=== PATIENT | female | born 1975 | race Caucasian/White ===

== ENCOUNTER 2018-02-21 23:49 | Emergency (ER) | payer MEDICARE ==
[~2018-02-21] VITALS: Ht 165.1 cm; Wt 49.9 kg
[2018-02-21 23:50] VITALS: BP 114/81
[2018-02-22] MEDS ORDERED: AMOX875T PO (00:33)
[2018-02-22] MEDS ORDERED: TRAM50TA PO (00:33)
--- NOTE | 2018-02-22 00:33 | PHYS DOC ---
Past Medical History Past Medical History: No Pertinent History Past Surgical History: Oophorectomy Alcohol Use: None Drug Use: None Adult General Chief Complaint Chief Complaint: DENTAL PROBLEM HPI HPI Patient is a 42 year old female with no significant medical history who presents today complaining of dental pain with swelling on the left lower gum for 3 days. Patient rates the pain as moderate. She describes the pain as sharp and constant. She states she's been taking aspirin [id number] with no relief. She states she does not have any dentist right now. She states she is a smoker. Review of Systems Review of Systems Constitutional: Denies fever or chills [] Eyes: Denies change in visual acuity, redness, or eye pain [] HENT: Reports dental pain. Denies nasal congestion or sore throat [] Musculoskeletal: Denies back pain or joint pain [] Integument: Denies rash or skin lesions [] Neurologic: Denies headache, focal weakness or sensory changes [] All other systems were reviewed and found to be within normal limits, except as documented in this note. Allergies Allergies Allergies Coded Allergies Type Severity Reaction Last Updated Verified No Known Drug Allergies 02/22/18 No Physical Exam Physical Exam Constitutional: Well developed, well nourished, no acute distress, non-toxic appearance. [] HENT: Normocephalic, atraumatic, bilateral external ears normal, oropharynx moist, no oral exudates, nose normal. Missing upper teeth. Severe dental decay noted on the lower front teeth. Most of the teeth left on the lower gum severely broken and decayed. Small dental abscess palpable on the left lower gum around tooth 22-23, no fluctuance to this area. Gum erythema noted. Skin: Warm, dry, no erythema, no rash. [] Back: No tenderness, no CVA tenderness. [] Extremities: No tenderness, no cyanosis, no clubbing, ROM intact, no edema. [] Neurologic: Alert and oriented X 3, normal motor function, normal sensory function, no focal deficits noted. [] Psychologic: Affect normal, judgement normal, mood normal. [] Current Patient Data Vital Signs Vital Signs Date Time Temp Pulse Resp B/P (MAP) Pulse Ox O2 Delivery O2 Flow Rate FiO2 02/21/18 23:50 98.3 108 18 114/81 (92) 96 Room Air 98.3 EKG EKG [] Radiology/Procedures Radiology/Procedures [] Course & Med Decision Making Course & Med Decision Making Pertinent Labs and Imaging studies reviewed. (See chart for details) Patient has severe dental decay. Will be discharged with amoxicillin and tramadol. Follow-up with a dentist from the list provided. I talked to her about a couple options including [facility] dental school and [facility]. Provided return precautions and discharged in stable condition. Smoking cessation discussed Dragon Disclaimer Dragon Disclaimer This electronic medical record was generated, in whole or in part, using a voice recognition dictation system. Departure Departure Impression: Primary Impression: Dental decay Additional Impressions: Dental abscess Dentalgia Smoking addiction Disposition: HOME, SELF-CARE Condition: STABLE Patient Instructions: Dental Abscess, Dental Caries, Smoking Cessation Additional Instructions: You were evaluated in the emergency room for severe dental decay. Please establish care with a dentist as soon as possible and follow-up. Complete your oral antibiotics. Consider smoking cessation Scripts Tramadol Hcl (TRAMADOL HCL) 50 Mg Tablet 50 MG PO Q6HRS PRN for PAIN, #20 TAB Prov: MOUSTAPHA BOONE APRN 02/22/18 Amoxicillin (AMOXICILLIN) 875 Mg Tablet 1 TAB PO BID, #20 TAB Prov: MOUSTAPHA BOONE APRN 02/22/18 Problem Qualifiers MOUSTAPHA BOONE APRN Feb 22, 2018 00:33
== END 2018-02-22 00:41 | disposition home or self-care (01) ==
LOC: ER 23:49
DX: K04.7 Periapical abscess without sinus (principal); K02.9 Dental caries, unspecified; F17.200 Nicotine dependence, unspecified, uncomplicated
CPT/HCPCS: 99283